=== PATIENT | female | born 1950 | race Caucasian/White ===

== ENCOUNTER 2017-02-12 05:22 | Inpatient (IN) | payer OTHER ==
[2017-02-02 15:09] VITALS: Ht 162.6 cm; Wt 69.6 kg
--- NOTE | 2017-02-02 15:51 | PAT Medication Instructions ---
Service Date Feb 02, 2017. Current Home Medication List Alum & Mag Hydrox-Simethicone (Mylanta), 1 DOSE PO HS PRN for Indigestion Aspirin (Aspirin Ec), 81 MG PO HS Atenolol (Tenormin), 25 MG PO BID Lisinopril (Prinivil), 5 MG PO QAM Multivitamin (Multivitamin), 1 TAB PO QAM Simvastatin (Zocor), 20 MG PO QPM Medication Instructions For Your Scheduled Surgery - Check with surgeon/prescribing physician for instructions: Aspirin (Aspirin Ec), 81 MG PO HS - Hold the following medications the morning of surgery: Multivitamin (Multivitamin), 1 TAB PO QAM Lisinopril (Prinivil), 5 MG PO QAM - Take the following medications the morning of surgery with a sip of water: Atenolol (Tenormin), 25 MG PO BID - Take the following medications as scheduled the night before surgery: Simvastatin (Zocor), 20 MG PO QPM Atenolol (Tenormin), 25 MG PO BID Alum & Mag Hydrox-Simethicone (Mylanta), 1 DOSE PO HS PRN for Indigestion (if needed) If you have any questions please call us at [phone] or [phone] or [phone]
[2017-02-02 16:13] LABS: BASO % 0.3 %; BASO ABS # 0.02 K/uL (0-0.2); COMPLETE YES; EOS % 2.3 %; HEMATOCRIT 38.4 % (37-47); IG% 0.2 %; LYMPH % 30.5 %; LYMPH ABS # 1.95 K/uL (1.2-3.4); MEAN CELL VOLUME 88.1 fL (80-100); MEAN CORPUSCULAR HEMOGLOBIN 29.8 pg (25-34); MEAN CORPUSCULAR HGB CONC 33.9 g/dl (32-36); MEAN PLATELET VOLUME 10.7 fL (7.4-10.4); MONO % 8.6 %; NEUT % 58.1 %; PLATELET COUNT 209 K/uL (130-400); RED BLOOD COUNT 4.36 M/uL (4.2-5.4); WHITE BLOOD COUNT 6.39 K/uL (4.8-10.8)
[2017-02-02 16:15] LABS: URINE APPEARANCE CLEAR (CLEAR); URINE BILIRUBIN NEG (NEG); URINE COLOR YELLOW; URINE NITRITE NEG (NEG); URINE PH 7.5 (4.5-7.5); URINE SPECIFIC GRAVITY 1.018 (1.000-1.030); UROBILINOGEN NEG (NEG)
[2017-02-02 16:19] LABS: MANUAL MICROSCOPIC REQUIRED? NO; REVIEW REQ? NO
[2017-02-02 16:21] LABS: PROTHROMBIN TIME (PATIENT) 10.7 SECONDS (9.0-12.0)
--- NOTE | 2017-02-02 16:21 | DIAGNOSTIC IMAGING REPORT ---
CHEST 2 VIEWS ROUTINE HISTORY: Preop. COMPARISON: None. FINDINGS: The lungs are clear. Cardiac silhouette is normal in size. No pleural effusions. No pneumothorax. IMPRESSION: No acute process. Electronically signed by: Rojelio Weaver M.D. 02/02/2017 4:19 PM Dictated Date/Time: 02/02/2017 4:18 PM
--- NOTE | 2017-02-11 21:39 | History and Physical ---
History & Physical Date Feb 11, 2017. Chief Complaint Right foot and ankle pain History of Present Illness The patient is a 66 year old female with complaints of right foot and ankle pain. She has had pain at the medial and lateral aspects of the ankle. She failed conservative management of PT and NSAIDs. She later had an MRI after worsening flat foot deformity. The MRI demonstrated severe tendinosis of the posterior tibialis tendon as well as peroneal tendon tear. She is now being set up for surgical evaluation. Past Medical/Surgical History PMH: HTN, Hypercholesterolemia Surgical Hx: Hysterectomy, mastectomy Allergies Coded Allergies: Diclofenac (Verified Allergy, Unknown, SOB, DIFFICULTY SWALLOWING, 02/02/17 ) Isopropyl Alcohol (Verified Allergy, Unknown, SOB, DIFFICULTY SWALLOWING, 02/02/17) Propylene Glycol (Verified Allergy, Unknown, SOB, DIFFICULTY SWALLOWING, ) Home Medications Scheduled Aspirin (Aspirin Ec), 81 MG PO HS Atenolol (Tenormin), 25 MG PO BID Lisinopril (Prinivil), 5 MG PO QAM Multivitamin (Multivitamin), 1 TAB PO QAM Simvastatin (Zocor), 20 MG PO QPM Scheduled PRN Alum & Mag Hydrox-Simethicone (Mylanta), 1 DOSE PO HS PRN for Indigestion Physical Examination Skin: warm/dry, no rash Head: normocephalic, atraumatic Neck: supple Respiratory/Chest: lungs clear, normal breath sounds, no respiratory distress Cardiovascular: regular rate, rhythm, no murmur Abdomen / GI: normal bowel sounds, non tender Extremities: + pertinent finding (Right ankle: Pes planovalgus deformity. Moderate swelling medial and lateral. Tender to palpation over the posterior tibialis tendon, peroneal tendons, and sinus tarsi. Decrease ROM in all directions, especially dorsiflexion. Weak inversion and eversion.) Neurologic/Psych: no motor/sensory deficits, alert, oriented x 3 Diagnosis Right Posterior tibial tendinosis Right pes planovalgus deformity Right peroneus brevis tendon tear Achilles contracture Accessory navicular Plan of Treatment Recommend a right posterior tibial tendon reconstruction with flexor digitorum longus transfer, medializing calcaneal osteotomy, lateral column lengthening with autograft, right iliac crest bone graft harvest, perc. BIANCA, open repair peroneus brevis tendon tear, resection accessory navicular. All potential risks, benefits, complications, alternatives and rehab have been discussed. She wishes to proceed. She will be scheduled for 02.12.17.
[~2017-02-12] VITALS: Ht 162.6 cm; Wt 69.6 kg
[2017-02-12] VITALS (9 sets, daily range): BP systolic 105–153; BP diastolic 62–80; PULSE 58–70; TEMP 36.6–36.8; O2SAT 93–98
[~2017-02-12 05:22] MED LIST: ALUM-30 PO; ASPI81TA28 PO; ATEN-173 PO; LISI-729 PO; MULT-506 PO; SIMV20TA2 PO
[2017-02-12] MEDS ORDERED: LACTATED RINGER'S 1000ML 1,000 ML IV SCH (06:00)
[2017-02-12] MEDS ORDERED: CEFAZOLIN 1000MG/55 ML D5W IV SCH (06:00)
[2017-02-12] MEDS ORDERED: ROPIVACAINE 0.5% 5 MG/ML 30 ML VIAL ONE (06:37)
[2017-02-12] MEDS ORDERED: NEOSTIGMINE METHYLSULFATE 5 MG/5 ML SYR ONE (06:57)
[2017-02-12] MEDS ORDERED: FENTANYL CITRATE INJ 50 MCG/1 ML 2 ML VIAL ONE ×2 (06:57→09:51)
[2017-02-12] MEDS ORDERED: MIDAZOLAM HCL 1 MG/ML 2ML VIAL ONE (06:57)
[2017-02-12] MEDS ORDERED: PROPOFOL IV EMULSION 10 MG/ML 20 ML VIAL IV ONE (06:57)
[2017-02-12] MEDS ORDERED: DEXAMETHASONE SOD INJ 4 MG/ML VIAL ONE (06:57)
[2017-02-12] MEDS ORDERED: ROCURONIUM BROMIDE 10 MG/ML 5 ML VIAL ONE (06:57)
[2017-02-12] MEDS ORDERED: GLYCOPYRROLATE INJ 0.2 MG/ML VIAL ONE (06:57)
[2017-02-12] MEDS ORDERED: ONDANSETRON INJ 2 MG/ML 2 ML VIAL ONE ×2 (06:57→08:00)
[2017-02-12] MEDS ORDERED: LIDOCAINE HCL 2% 2 ML VIAL (20MG/ML) ONE (06:57)
[2017-02-12] MEDS ORDERED: GELATIN SPONGE SZ 100 ONE (06:58)
[2017-02-12] MEDS ORDERED: THROMBIN 5000 UNITS KIT ONE (06:58)
[2017-02-12] MEDS ORDERED: BACITRACIN 50000 UNIT VIAL ONE (06:58)
[2017-02-12] MEDS ORDERED: BUPIVACAINE/EPINEPHRINE 0.25% 1:200,000 30 ML VIAL ONE (06:58)
[2017-02-12] MEDS ORDERED: SCOPOLAMINE 1.5 MG TDSY TD ONE (07:00)
--- NOTE | 2017-02-12 07:26 | History & Physical Bridge Note ---
H&P Re-Evaluation Bridge Note: I have examined the patient, reviewed the History & Physical and in the interval since the performance of the History & Physical I have noted the following changes of clinical significance: No changes noted
[2017-02-12] MEDS ORDERED: HYDROmorphone INJ 1 MG/ML SYR IV PRN (07:30)
[2017-02-12] MEDS ORDERED: ATROPINE SULFATE 0.1 MG/ML 5ML SYR IV PRN ×2 (07:30→08:15)
[2017-02-12] MEDS ORDERED: FENTANYL CITRATE INJ 50 MCG/1 ML 2 ML VIAL IV PRN (07:30)
[2017-02-12] MEDS ORDERED: EpHEDrine SULFATE INJ 50 MG/ML AMP IV PRN ×2 (07:30→08:15)
[2017-02-12] MEDS ORDERED: ONDANSETRON INJ 2 MG/ML 2 ML VIAL IV PRN ×3 (07:30→11:00)
[2017-02-12] MEDS ORDERED: CEFAZOLIN SOD 1 GM VIAL ONE (07:55)
[2017-02-12] MEDS ORDERED: MoRPHine SULFATE PF 1 MG/ML 10 ML AMP/VIAL ONE (08:05)
[2017-02-12] MEDS ORDERED: PHENYLEPHRINE 100MCG/ML 5ML SYR IV PRN (08:15)
--- NOTE | 2017-02-12 10:49 | [facility] Post Operative Brief Note ---
Immediate Operative Summary Operative Date Feb 12, 2017. Pre-Operative Diagnosis Right Posterior tibial tendinosis Right pes planovalgus deformity Right peroneus brevis tendon tear Achilles contracture Accessory navicular Post-Operative Diagnosis Right Posterior tibial tendon tear Right Posterior Tibial Tendon Dysfunction Grade 2 Right pes planovalgus deformity Right peroneus brevis tendon tear and Tenosynovitis Achilles contracture Accessory navicular Procedure(s) Performed Right Foot Posterior Tibial Tendon Reconstruction with Flexor Digitorum Longus Tendon Transfer, Resection Accessory Navicular, Medializing Calcaneal Osteotomy, Percutaneous Tendon Achilles Lengthening, Lateral Column Lenghtening with Autograft, Iliac Crest Bone Graft [place], Open Debridement Peroneal Brevis Tendon, Tenosynovectomy Peroneus Brevis Surgeon Dr. Aubrey Breen Data Entry Assistant Surgeon(s) Phu Long PA-C Estimated Blood Loss 20 ml Findings See Dict Specimens none per surgeon Drains HV x 1 Anesthesia GLMA w/ popliteal block Complication(s) None Disposition Recovery Room / PACU
[2017-02-12] MEDS ORDERED: ALUMINUM/MAGNESIUM/SIMETH (MAALOX MAX) 30 ML UDC PO PRN ×2 (11:00)
[2017-02-12] MEDS ORDERED: MoRPHine SULFATE 2 MG/ML CARP IV PRN (11:00)
[2017-02-12] MEDS ORDERED: NO NSAIDS SCH (11:00)
[2017-02-12] MEDS ORDERED: OXYCODONE HCL IR 5 MG TAB (IMMEDIATE RELEASE) PO PRN (11:00)
[2017-02-12] MEDS ORDERED: BISACODYL 10 MG SUPP PR PRN (11:00)
[2017-02-12] MEDS ORDERED: SOD PHOSPHATE/SOD BIPHOSPHATE ENEMA 132 ML BTL PR PRN (11:00)
[2017-02-12] MEDS ORDERED: MAGNESIUM HYDROXIDE SUSP 30 ML UDC PO PRN (11:00)
[2017-02-12] MEDS ORDERED: ZOLPIDEM TARTRATE 5 MG TAB PO PRN (11:00)
--- NOTE | 2017-02-12 11:00 | DIAGNOSTIC IMAGING REPORT ---
RIGHT FOOT 2 VIEWS CLINICAL HISTORY: RT RECONSTRUCTION Right COMPARISON STUDY: None. FINDINGS: Total fluoroscopy time is 29 seconds. 3 fluoroscopic spot images of the hindfoot. Calcaneal osteotomy transfixed with 2 screws. The hardware appears intact. The alignment is near-anatomic. There posterior skin jadon. IMPRESSION: Fluoroscopy provided for calcaneal osteotomy Electronically signed by: Rojelio Weaver M.D. 02/12/2017 10:59 AM Dictated Date/Time: 02/12/2017 10:58 AM
[2017-02-12] MEDS: HYDROmorphone INJ 2 MG/ML SYR/VIAL IV PRN ×2 (11:01→11:14)
--- NOTE | 2017-02-12 11:08 | Discharge Instructions ---
Discharge Instructions Date of Service Feb 12, 2017. Admission Reason for Admission: Right Foot Muscle(S)/Tendon(S) Strain, Flat Foot ( Discharge Discharge Diagnosis / Problem: Painful pes planovalgus right, posterior tibial tendon dysfunction/tear Discharge Goals Goal(s): Decrease discomfort, Improve function Activity Recommendations Activity Limitations: per Instructions/Follow-up section Weightbearing Status: Right non-weightbearing . Instructions / Follow-Up Instructions / Follow-Up ACTIVITY RECOMMENDATIONS: Limitations: No weight bearing to affected limb at all times. SPECIAL CARE INSTRUCTIONS: * Take Aspirin 81 mg every 12 hours for 30 days. * Some drainage onto the dressing is normal and is no cause for alarm. * Some swelling is natural especially after walking. * When resting, keep your foot elevated above the level of your heart. * Call [facility] if you notice: -Increased drainage -Fever over 101 degrees F -Severe constant pain BANDAGE: * Leave bandage/cast in place unless otherwise directed. * Keep bandage/cast dry at all times. FOLLOW UP VISIT WITH DR. DEE If appointment is not already scheduled: Please call [facility] after you get home today to schedule a follow-up appointment for [address] Dee at . Current Hospital Diet Patient's current hospital diet: Regular Diet Discharge Diet Recommended Diet: Regular Diet Procedures Procedures Performed: Right Foot Posterior Tibial Tendon Reconstruction with Flexor Digitorum Longus Tendon Transfer, Resection Accessory Navicular, Medializing Calcaneal Osteotomy, Percutaneous Tendon Achilles Lengthening, Lateral Column Lenghtening with Autograft, Iliac Crest Bone Graft [place], Open Debridement Peroneal Brevis Tendon, Tenosynovectomy Peroneus Brevis Pending Studies Studies pending at discharge: no Medical Emergencies . Who to Call and When: Medical Emergencies: If at any time you feel your situation is an emergency, please call 911 immediately. . Non-Emergent Contact Non-Emergency issues call your: Surgeon Call Non-Emergent contact if: temperature is above 101, your pain is not controlled, your pain is worsening . "Provider Documentation" section prepared by Phu Long. . VTE Core Measure Inpt VTE Proph given/why not?: Other Anticoagulation, T.E.D. Stockings, SCD's
--- NOTE | 2017-02-12 12:10 | DIAGNOSTIC IMAGING REPORT ---
RIGHT FOOT MIN 3 VIEWS ROUTINE CLINICAL HISTORY: post op Right COMPARISON: None. DISCUSSION: Operative changes consistent with a fusion-type procedure involving the ankle. Alignment is generally anatomic. There is drainage catheters are present. Patient is in casting material. Expected soft tissue postoperative change IMPRESSION: Postoperative changes as noted. Alignment appears anatomic Electronically signed by: Efrain Gallegos M.D. 02/12/2017 12:09 PM Dictated Date/Time: 02/12/2017 12:07 PM
--- NOTE | 2017-02-12 12:19 | Anesthesiology Progress Note ---
Anesthesia Post Op Note Date & Time Feb 12, 2017 at 12:19 Vital Signs Pain Intensity: 2 Vital Signs Past 12 Hours Date Time Temp Pulse Resp B/P (MAP) Pulse Ox O2 Delivery O2 Flow Rate FiO2 02/12/17 11:55 65 16 117/62 96 Nasal Cannula 4 02/12/17 11:40 63 14 116/71 96 Nasal Cannula 4 02/12/17 11:30 36.4 62 16 126/73 99 Nasal Cannula 4 02/12/17 11:15 68 16 116/65 95 Mask 4 02/12/17 11:05 79 16 109/86 96 Mask 7 02/12/17 10:55 74 16 128/63 98 Mask 10 02/12/17 10:45 36.3 83 16 123/67 95 Mask 10 02/12/17 06:02 36.7 58 20 153/80 (104) 95 Room Air Notes Mental Status: alert / awake / arousable, participated in evaluation Pt Amnestic to Procedure: Yes Nausea / Vomiting: adequately controlled Pain: adequately controlled Airway Patency, RR, SpO2: stable & adequate BP & HR: stable & adequate Hydration State: stable & adequate Anesthetic Complications: no major complications apparent
[2017-02-12] MEDS: D5W AND 1/2NSS + 20MEQ KCL 1,000 ML IV SCH (14:03)
[2017-02-12] MEDS: ACETAMINOPHEN 500 MG TAB PO SCH ×2 (14:04→21:41)
[2017-02-12] MEDS: CEFAZOLIN IV 2,000 MG in DEXTROSE 5% 50ML 50 ML IV SCH (16:10)
--- NOTE | 2017-02-12 17:15 | [facility] Operative Report ---
Operative Report Date of Service Feb 12, 2017. Operative Report Preoperative Diagnosis: Right posterior tibial tendon tear; posterior tibial tendon dysfunction grade 2; Achilles contracture; peroneus brevis tear/ tenosynovitis; accessory navicular; painful pes planus Postoperative diagnosis: Same as above Procedure: Right posterior tibial tendon reconstruction with flexor digitorum longus tendon transfer; medializing calcaneal osteotomy with screw fixation; lateral column lengthening procedure with autografting; percutaneous tendo Achilles lengthening; iliac crest bone graft harvest; debridement and tenosynovectomy of the peroneus brevis tendon; resection accessory navicular. Surgeon: Dr. Aubrey Breen D.O. kindergarten assistant: Phu Long PA-C Anesthesia: Gen. LMA with popliteal block Specimens: None Drains: Hemovac 1 Complications: None Blood loss: 20 mL Indications: This is a 66-year-old woman with chronic progressive pain and deformity of her right foot. This is been ongoing for the last 6-12 months. She attempted and failed conservative management including physical therapy, anti-inflammatories, rest, shoewear modification, orthotic devices, and assistive devices. She had an MRI which demonstrated a complete rupture of her posterior tibial tendon and asymptomatic accessory navicular. She has significant pes planovalgus deformity and reactive changes in the sinus Tarsi. The patient was then scheduled for surgery as indicated. All potential risks, benefits, complications, alternatives, rehabilitation, potential for incomplete relief of symptoms, DVT, PE, , persistent pain and swelling, scar and weakness neurovascular injury, nonunion, malunion and wound complications were discussed with the patient. The patient decided to proceed with procedure as indicated. PROCEDURE: The patient was taken to the Operative Suite and placed supine on the Operating Room table. After reviewing the consent and identification of proper operative site, the patient was anesthetized. LMA was placed. Tourniquet was placed high on the operative thigh over cast padding. The lower extremity and operative ipsilateral iliac crest were sterilely prepped and draped in the usual fashion. The operative lower extremity was elevated, exsanguinated with an Esmarch bandage, and tourniquet inflated to 350 mmHg. Next, the foot was held in dorsiflexion and a three-part percutaneous Tendo- Achilles lengthening was performed with an 11-blade scalpel. These incisions were closed using skin jadon. Next, the 15-blade scalpel was used to make an oblique incision along the lateral aspect of the calcaneus. The incision was deepened through the subcutaneous tissue. Meticulous hemostasis was achieved with the use of electrocautery. Care was taken to retract and protect the superficial cutaneous nerve. A 15-blade scalpel was used to make an incision in the periosteum which was elevated both proximally and distally. Next, sagittal saw was used to make an osteotomy and then the tuberosity of the calcaneus was then shifted medially approximately 5 - 6 mm and then a stab incision was made in the heel and a guidepin for the 7.3 mm cannulated screw set was then passed across the osteotomy under fluoroscopic control. Next, the drill and countersink were utilized to prepare for the screw and then a 7.3 mm short thread screw of appropriate length was passed across the osteotomy thus compressing it under fluoroscopic control. The guidepin was removed. Wound was irrigated laterally. The overhanging shelf of bone after the shift in the osteotomy was resected with a rongeur and further irrigated. Then the dermis was closed using interrupted 3-0 Vicryl sutures and the skin was closed using 4- 0 nylon suture. Next, the 15-blade was used to make an incision centered over the anterior process of the calcaneus. The incision was deepened through the subcutaneous tissue. Meticulous hemostasis was achieved with the use of electrocautery. The superficial cutaneous nerve was then retracted and protected. The extensor digitorum brevis was then sharply elevated dorsally and the peroneal tendons were elevated inferiorly and the Hohmann retractors were placed superiorly and inferiorly followed by the use of a sagittal saw to make an osteotomy cut approximately 1.5 cm proximal to the calcaneocuboid joint. Next, a broad osteotome was placed in the osteotomy and completed with a mallet. Next, the cervical lamina book store associate was placed to determine correct width of the planned bone graft. Patient corrected to a more normal arch pattern with block graft and then a moist lap was placed over the lateral aspect of the foot. At this point the lateral ASIS region has been injected with approximately 20 cc's of 0.5% Marcaine with Epinephrine and a 10-blade scalpel incision was made centered over the iliac crest approximately 1 cm lateral and proximal to the ASIS. This was deepened through the subcutaneous tissue. Meticulous hemostasis was achieved with the use of electrocautery. The Weitlaner retractor was placed into the wound. All bleeders were cauterized. Emma's fascia was incised in line with the skin incision. Blunt dissection was performed down to the fascia and this was also incised with electrocautery and elevated both proximally and distally and medially and laterally. A block graft was measured and then a trapezoid graft was then excised after Alva retractors were placed on either side of the iliac crest. The block graft had a slight taper to it and this was then removed with a curved osteotome. The graft was then passed to the back table to be protected and further cancellous graft was obtained from the iliac crest. This was then copiously irrigated with sterile Normal Saline. A combination of Gelfoam and Thrombin was placed to fill the defect and void in the hemipelvis and the fascia was then closed with interrupted #1 Vicryl sutures. The wound was injected with 1 cc of Duramorph and approximately 5 cc's of 0.5% Marcaine with Epinephrine. Next, after the fascia was closed, irrigation was performed in the second layer, and then the dermis was closed using buried interrupted 2- 0 Vicryl sutures and skin jadon. Next, a sterile compressive dressing was applied overdressed with an OpSite. Next, the block graft was then placed into the lateral column osteotomy, tamped in place with bone tamp with near anatomic contour, and it was then thus stabilized with a single fully threaded 4.0 cancellous screw which was placed in a lag fashion to compress the osteotomy and the block graft. The wound was irrigated with sterile Normal Saline and then cancellous graft from the iliac crest was then packed around the autograft. The peroneal tendon sheath was then carefully opened with 15 blade scalpel. The tendons were examined and there is noted to be slight tearing of the peroneus brevis. Metzenbaum scissors were used to debride the peroneus brevis tendon. Hypertrophic tenosynovium enveloped the peroneus longus and the peroneus brevis. Tenosynovectomy was performed with tenotomy scissors. Irrigation was performed with sterile normal saline. The tendon sheath was then closed using 2-0 Vicryl sutures. The extensor digitorum brevis was then closed with a buried interrupted 2-0 Vicryl, and the dermis was closed using buried 3-0 Vicryl, and the skin was closed using 4-0 nylon. Next, a long curvilinear incision was made with 15-blade scalpel in the medial aspect of the hindfoot centered over the posterior tibial tendon proximally and then over the medial aspect of the first metatarsal medially. The incision was deepened through the subcutaneous tissue. Meticulous hemostasis was achieved with the use of electrocautery. The laciniate ligament was incised in line with the skin incision and the flexor retinaculum was then incised with 15-blade scalpel. The posterior tibial tendon was visualized and noted to be completely torn. Next, the symptomatic accessory navicular was then sharply excised with the 15-blade scalpel. Next attention was directed toward the medial aspect of the hindfoot adjacent to the first metatarsal. A 15 blade was used to make an incision which was deepened through the fascia on the plantar aspect of the first metatarsal. The interval between the first metatarsal and the abductor hallucis was developed to the deep soft tissues of the midfoot and forefoot. The flexor hallucis longus and flexor digitorum longus were clearly identified. Tenodesis was performed with #1 Vicryl at the distal most aspect of the two tendons and then a small whipstitch was placed in the distal aspect of the FDL tendon. This was then incised and released distally and then soft tissues were elevated at the posterior aspect of the tibia and then the tendon distally was withdrawn through the small opening in the posterior fascia. Next, a 4.5 mm drill bit was used to make a relief pilot hole in the medial aspect of the navicular. The FDL tendon was then passed from plantar to dorsal aspect and then sutured onto itself using the Pulvertaft weave and a sharp tendon passer secured with a #2 FiberWire suture. Two more weave passes were performed and secured with #2 FiberWire suture and then a curved taper free needle was used to suture the free ends of the #1 Ethibond into the construct to increase stability. Next, a suture was then tied and cut. The wound was irrigated with sterile Normal Saline. Then a 10-Georgian single lumen drain was placed in the medial aspect of the foot and attached to the Hemovac and the flexor retinaculum was closed using a running 2-0 Vicryl, the dermis was closed using buried interrupted 3-0 Vicryl, and the interval between the abductor hallucis and the fascia of the first metatarsal was closed using 2-0 Vicryl. Skin was closed using 4-0 nylon suture. The foot was held in slight plantar flexion and inversion. A sterile compressive dressing and a bulky Abdulkadir Salvador plaster splint was applied overwrapped with an Rocco wrap. The tourniquet was released. The patient was awakened and taken to Recovery Room in stable condition. I attest to the content of the Intraoperative Record and any orders documented therein. Any exceptions are noted below.
[2017-02-12] MEDS ORDERED: SIMVASTATIN 20 MG TAB PO SCH (21:00)
[2017-02-12] MEDS ORDERED: SENNA 8.6 MG TAB PO SCH (21:00)
[2017-02-12] MEDS: ASPIRIN 81 MG ECTAB PO SCH (21:05)
[2017-02-12] MEDS: DOCUSATE SODIUM 100 MG CAP PO SCH (21:05)
[2017-02-13] MEDS: D5W AND 1/2NSS + 20MEQ KCL 1,000 ML IV SCH ×2 (00:03→08:52)
[2017-02-13] MEDS: CEFAZOLIN IV 2,000 MG in DEXTROSE 5% 50ML 50 ML IV SCH (00:03)
[2017-02-13 03:20] VITALS: BP 134/82; PULSE 72; TEMP 36.6; O2SAT 98
[2017-02-13] MEDS: ACETAMINOPHEN 500 MG TAB PO SCH (05:34)
[2017-02-13 06:31] LABS: HEMATOCRIT 35.2 % (37-47); MEAN CELL VOLUME 87.6 fL (80-100); MEAN CORPUSCULAR HEMOGLOBIN 28.1 pg (25-34); MEAN CORPUSCULAR HGB CONC 32.1 g/dl (32-36); MEAN PLATELET VOLUME 10.9 fL (7.4-10.4); PLATELET COUNT 214 K/uL (130-400); RED BLOOD COUNT 4.02 M/uL (4.2-5.4); WHITE BLOOD COUNT 10.64 K/uL (4.8-10.8)
[2017-02-13 07:07] LABS: BUN/CREATININE RATIO 16.9 (10-20); CALCIUM 8.5 mg/dl (8.5-10.1); CREATININE 0.8 mg/dl (0.60-1.20); POTASSIUM 4.2 mmol/L (3.5-5.1)
[2017-02-13 07:42] VITALS: BP 134/72; PULSE 63; TEMP 36.8; O2SAT 98
[2017-02-13] MEDS: ASPIRIN 81 MG ECTAB PO SCH (08:53)
[2017-02-13] MEDS: DOCUSATE SODIUM 100 MG CAP PO SCH (08:53)
[2017-02-13] MEDS ORDERED: PANTOprazole SOD 40 MG TAB PO SCH (09:00)
[2017-02-13] MEDS ORDERED: LISINOPRIL 5 MG TAB PO SCH (09:00)
[2017-02-13] MEDS ORDERED: MULTIVITAMIN TAB PO SCH ×2 (09:00)
--- NOTE | 2017-02-13 09:14 | Orthopedic Progress Note ---
Orthopedic Progress Note Date of Service Feb 13, 2017. Subjective Post OP Day: 1 Reports: feeling well, Denies: chest pain, SOB, nausea / vomiting, light headedness, calf pain Additional Notes: Pt awake, alert. States that her foot is numb still. Unable to move the toes as of yet. No pain as of yet. Objective splint C/D/I, capillary refill less than 2 sec., A&O x3 No movement in toes. When the toes are rubbed, she has some tingling sensation on the bottom of her toes. Date Time Temp Pulse Resp B/P (MAP) Pulse Ox O2 Delivery O2 Flow Rate FiO2 02/13/17 07:42 36.8 63 17 134/72 (92) 98 Room Air 02/13/17 03:20 36.6 72 18 134/82 (99) 98 Room Air 02/12/17 23:59 Room Air 02/12/17 22:57 36.8 64 16 127/77 (94) 96 Room Air 02/12/17 21:08 70 131/73 (92) 02/12/17 20:28 36.8 70 16 128/76 (93) 93 Room Air 02/12/17 16:00 Nasal Cannula 2.0 02/12/17 15:14 36.6 64 16 105/64 (78) 97 Room Air 02/12/17 14:13 63 16 126/74 (91) 97 Nasal Cannula 2.0 02/12/17 13:15 36.7 66 17 118/62 (80) 95 Nasal Cannula 2.0 02/12/17 12:45 61 16 132/68 (89) 98 Nasal Cannula 2.0 02/12/17 12:15 94 Nasal Cannula 2.0 02/12/17 12:15 36.6 66 16 133/75 (94) 94 Nasal Cannula 2.0 02/12/17 12:15 Nasal Cannula 2.0 02/12/17 11:55 65 16 117/62 96 Nasal Cannula 4 02/12/17 11:40 63 14 116/71 96 Nasal Cannula 4 02/12/17 11:30 36.4 62 16 126/73 99 Nasal Cannula 4 02/12/17 11:15 68 16 116/65 95 Mask 4 02/12/17 11:05 79 16 109/86 96 Mask 7 02/12/17 10:55 74 16 128/63 98 Mask 10 02/12/17 10:45 36.3 83 16 123/67 95 Mask 10 Laboratory Results 24 Hours: Test 02/13/17 05:24 Hematocrit 35.2 % Hemoglobin 11.3 g/dL Assessment & Plan Assessment: POD 1 s/p Right posterior tibial tendon reconstruction with flexor digitorum longus tendon transfer; medializing calcaneal osteotomy with screw fixation; lateral column lengthening procedure with autografting; percutaneous tendo Achilles lengthening; iliac crest bone graft harvest; debridement and tenosynovectomy of the peroneus brevis tendon; resection accessory navicular. Numbness in toes/foot likely due to regional block still working well. Plan: Up with PT today and plan for discharge to home. Inhouse Planning Pain Management: Morphine, Oxy IR DVT Prophylaxis: TEDs, SCDs, ASA Discharge Planning Discharge Planning: home Pain Management: Percocet, Oxy IR DVT Prophylaxis: ASA
[2017-02-13] MEDS ORDERED: ASPI81TA28 PO (09:17)
[2017-02-13] MEDS ORDERED: OXYC-57 PO (09:17)
[2017-02-13 10:16] VITALS: BP 134/72; PULSE 63; TEMP 36.8; O2SAT 98
== END 2017-02-13 11:44 | disposition home or self-care (01) | DRG 502 ==
LOC: C.ACU 05:22 → C.3E 11:06 → ENRESERV 11:49
PROVIDERS: ADMIT Orthopaedic Surgery Sports Medicine; ATTEND Orthopaedic Surgery Sports Medicine
PROC: 0Q8L0ZZ Division of Right Tarsal, Open Approach (ICD-10-PCS; principal; 2017-02-12 07:30)
PROC: 0LQN0ZZ Repair Right Lower Leg Tendon, Open Approach (ICD-10-PCS; principal; 2017-02-12 07:30)
PROC: 0QB20ZZ Excision of Right Pelvic Bone, Open Approach (ICD-10-PCS; principal; 2017-02-12 07:30)
PROC: 0K8 Muscles, Division (ICD-10-PCS; principal; 2017-02-12 07:30)
PROC: 0QHL04Z Insertion of Internal Fixation Device into Right Tarsal, Open Approach (ICD-10-PCS; principal; 2017-02-12 07:30)
PROC: 0LBN0ZZ Excision of Right Lower Leg Tendon, Open Approach (ICD-10-PCS; principal; 2017-02-12 07:30)
PROC: 0LXN0ZZ Transfer Right Lower Leg Tendon, Open Approach (ICD-10-PCS; principal; 2017-02-12 07:30)
PROC: 0LMN0ZZ Reattachment of Right Lower Leg Tendon, Open Approach (ICD-10-PCS; principal; 2017-02-12 07:30)
DX: M76.821 Posterior tibial tendinitis, right leg (principal); M67.01 Short Achilles tendon (acquired), right ankle; M66.88 Spontaneous rupture of other tendons, other sites; M65.9 Synovitis and tenosynovitis, unspecified; M21.41 Flat foot [pes planus] (acquired), right foot; M65.871 Other synovitis and tenosynovitis, right ankle and foot; I10 Essential (primary) hypertension; E78.00 Pure hypercholesterolemia, unspecified; Z79.82 Long term (current) use of aspirin